=== PATIENT | male | born 2000 | race Caucasian/White ===

== ENCOUNTER 2021-05-04 08:42 | Emergency (ER) | payer OTHER ==
[2021-05-04 09:04] VITALS: BP 129/86; PULSE 110; TEMP 98.4; BMI 40.6
== END 2021-05-04 09:52 | disposition home or self-care (01) ==
LOC: FER 08:42
DX: R07.89 Other chest pain (principal)
CPT/HCPCS: 71046-TC-FY; 93005; 99284-25